=== PATIENT | male | born 1980 | race Caucasian/White ===

== ENCOUNTER → 2025-03-27 | Outpatient (CLI) | payer BC ==
[2025-03-27 13:05] LABS: BASOPHILS % 0.7 % (0.0-2.0); EOSINOPHILS % 3.7 % (0.0-5.0); HEMATOCRIT. 42.0 % (42.0-52.0); HEMOGLOBIN. 13.9 g/dL (14.0-18.0); LYMPHOCYTES % 34.7 % (20.0-50.0); MEAN PLATELET VOLUME 9.5 fl (7.4-10.4); MONOCYTES % 6.3 % (2.0-8.0); NEUTROPHILS % 54.6 % (40.0-76.0); PLATELET 248 x1000/uL (130-400); RED BLOOD CELL COUNT 4.86 mill/uL (4.7-6.1); RED CELL DISTRIBUTION WIDTH 12.2 % (11.6-14.6)
[2025-03-27 14:45] LABS: CREATININE 1.2 mg/dL (0.6-1.3); TRIGLYCERIDE 261 mg/dL (0-150); UREA NITROGEN BLOOD 12 mg/dL (9-23)
[2025-03-27 14:46] LABS: LDL CHOLESTEROL 147 mg/dL (5-100)
[2025-03-27 14:47] LABS: ASPARTATE AMINOTRANSFERASE 27 IU/L (<34); BILIRUBIN TOTAL 0.7 mg/dL (0.1-1.0)
[2025-03-27 14:48] LABS: PROTEIN TOTAL 8.0 g/dL (6.0-8.3)
[2025-03-27 14:49] LABS: T4 FREE 1.15 ng/dL (0.89-1.76)
== END | disposition home or self-care (01) ==
LOC: LAB 12:23
PROVIDERS: ATTEND Internal Medicine Endocrinology, Diabetes & Metabolism
DX: E03.9 Hypothyroidism, unspecified (principal); Z00.00 Encounter for general adult medical examination without abnormal findings; Z79.899 Other long term (current) drug therapy
CPT/HCPCS: 36415; 80053; 80061; 82306; 83036; 84439; 84443; 85025